=== PATIENT | female | born 1970 | race Caucasian/White ===

== ENCOUNTER → 2021-10-16 | Outpatient (CLI) | payer BC ==
--- NOTE | 2021-10-17 14:08 | MM ---
Reason for exam: screening (asymptomatic). Last mammogram was performed 1 year and 11 months ago. History: Patient is postmenopausal. Physical Findings: A clinical breast exam by your physician is recommended on an annual basis and results should be correlated with mammographic findings. MG 3D Screening Mammo W/Cad Bilateral CC and MLO view(s) were taken. Prior study comparison: November 28, 2019, mammogram, performed at [facility]. There are scattered fibroglandular densities. There is chronic nodularity in the left breast. There is no discrete abnormality. ASSESSMENT: Benign, BI-RAD 2 RECOMMENDATION: Routine screening mammogram of both breasts in 1 year.
== END | disposition home or self-care (01) ==
LOC: RADMAMWWP 15:37
PROVIDERS: ATTEND Internal Medicine
DX: Z12.31 Encounter for screening mammogram for malignant neoplasm of breast (principal); Z78.0 Asymptomatic menopausal state
CPT/HCPCS: 77063; 77067

== ENCOUNTER → 2024-05-12 | Outpatient (CLI) | payer BC ==
--- NOTE | 2024-05-12 10:51 | US ---
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 GLAND SIZE: Right Lobe: 4.3 x 1.56 cm Overall Parenchyma: heterogeneous Left Lobe: 4.3 x 1.5 1. cm Overall Parenchyma: heterogeneous Isthmus Thickness: 0.5 cm NODULES- multiple bilateral subcentimeter nodules seen, largest measured RIGHT: # of nodules measured on right: 2 1. 0.5 X 0.3 x 0.3 cm, lower lateral, solid or almost completely solid, hypoechoic nodule, which is wider than tall, with smooth margins, without echogenic foci. TR 4 Prior size: No previous 2. 0.5 X 0.5 x 0.3 cm, mid medial, solid or almost completely solid, hypoechoic nodule, which is wi dave than tall, with smooth margins, without echogenic foci. TR 4 Prior size: No previous LEFT: # of nodules measured on left: 2 1. 0.9 X 0.7 x 0.5 cm, upper mid, solid or almost completely solid, hypoechoic nodule, which is wid er than tall, with smooth margins, without echogenic foci. TR 4 Prior size: No previous 2. 0.6 X 0.4 x 0.3 cm, lower lateral, solid or almost completely solid, hypoechoic nodule, which i s wider than tall, with smooth margins, without echogenic foci. TR 4 Prior size: No previous ISTHMUS: # of nodules measured in the isthmus: 0 Bilateral neck scanned, no evidence of lymphadenopathy. IMPRESSION: 1. Multiple subcentimeter TR 4 nodules which DO NOT meet the criteria for FNA. Recommend continued leger rveillance. 2. Heterogeneous thyroid tissue correlate for thyroiditis. 2017 ACR TI-RADS LEVEL: TR-RADS 4 - Moderately Suspicious: Follow if > 1 cm, FNA if > 1.5 cm *Highest TI-RADS level nodule reported
--- NOTE | 2024-06-07 12:15 | MM ---
Reason for Exam: Screening (asymptomatic). Last mammogram was performed 2 year(s) and 7 month(s) ago. Patient History: Menarche at age 15. First Full-Term at age 19. Left ovary removed at age 29. Right ovary removed at age 29. Hysterectomy at age 29. Postmenopausal. Risk Values: Kelin 5 year model risk: 1.0%. NCI Lifetime model risk: 6.7%. Prior Study Comparison: 11/28/2019 Screening Mammogram, [facility]. 10/16/2021 Bilateral Screening Mammogram, [facility]. Tissue Density: There are scattered areas of fibroglandular density. Findings: Analyzed By CAD. Benign intramammary lymph node redemonstrated posterior upper-outer quadrant left breast. No significant change from prior exams. Overall Assessment: Benign, BI-RAD 2 Management: Screening Mammogram of both breasts in 1 year. 1. Screening Mammogram Bilateral in 1 Year . 2. Patient should continue monthly self-breast exams. A clinical breast exam by your physician is recommended on an annual basis. 3. This exam should not preclude additional follow-up of suspicious palpable abnormalities. NOTE ON KELIN SCORES AND LIFETIME RISK: 1. A Kelin score greater than 3% is considered moderate risk. If this is the case, consider specialist referral to assess eligibility for a risk reducing agent. 2. If overall lifetime risk for the development of breast cancer is 20% or higher, the patient may qualify for future screening with alternating mammogram and breast MRI. Electronically signed and approved by: Meggan Bear M.D. Radiologist
== END | disposition home or self-care (01) ==
LOC: RADUSWWP 08:24
PROVIDERS: ATTEND Internal Medicine
DX: Z12.31 Encounter for screening mammogram for malignant neoplasm of breast (principal); E04.2 Nontoxic multinodular goiter; Z78.0 Asymptomatic menopausal state; Z90.721 Acquired absence of ovaries, unilateral
CPT/HCPCS: 76536; 77063; 77067

== ENCOUNTER → 2024-12-21 | Outpatient (CLI) | payer BC ==
--- NOTE | 2024-12-21 08:40 | XR ---
EXAMINATION TYPE: XR chest 2V DATE OF EXAM: 12/21/2024 8:26 AM COMPARISON: None CLINICAL INDICATION: Female, 54 years old with history of Z01.818 PRE OP; [facility] TECHNIQUE: XR chest 2V Frontal and lateral views of the chest. FINDINGS: Lungs/Pleura: There is no evidence of pleural effusion, focal consolidation, or pneumothorax. Pulmonary vascularity: Unremarkable. Heart/mediastinum: Cardiomediastinal silhouette is unremarkable. Musculoskeletal: No acute osseous pathology. There is fixation hardware in the lower cervical spine. Other findings: None IMPRESSION: No acute cardiopulmonary disease/process. [facility], , 12/21/2024 8:38 AM
[2024-12-21 08:52] LABS: Appearance,Urine Clear (Clear); Bilirubin,Urine Negative (Negative); Blood,Urine Negative (Negative); Color,Urine Yellow; Glucose,Urine (UA) Negative (Negative); INR 0.9 (<1.2); Ketones,Urine Negative (Negative); Leukocyte Esterase,Urine Moderate (Negative); Mucus,Urine Moderate /hpf; Nitrite,Urine Negative (Negative); Partial Thromboplastin Time 22.3 sec (22.0-30.0); Protein,Urine Trace (Negative); Prothrombin Time 10.4 sec (10.0-12.5); RBC,Urine 1 /hpf (0-5); Specific Gravity,Urine 1.024 (1.001-1.035); Squamous Epithelial Cell,Urine 1 /hpf (0-4); Urobilinogen,Urine <2.0 mg/dL (<2.0); WBC,Urine 9 /hpf (0-5)
[2024-12-21 10:13] LABS: Basophils # (A) 0.07 X 10*3/uL (0.00-0.10); Basophils % (A) 1.2 %; Eosinophils # (A) 0.18 X 10*3/uL (0.04-0.35); Eosinophils % (A) 3.2 %; HCT 41.5 % (37.2-46.3); HGB 13.5 g/dL (12.0-15.0); Lymphocytes % (A) 37.4 %; MCH 30.7 pg (27.0-32.0); MCHC 32.5 g/dL (32.0-37.0); MCV 94.3 FL (80.0-97.0); Mean Platelet Volume 10.2 FL (9.5-12.2); Monocytes # (A) 0.38 X 10*3/uL (0.20-1.00); Monocytes % (A) 6.8 %; NRBC Per 100 WBC 0 X 10*3/uL (0.00-0.01); Neutrophils # (A) 2.85 X 10*3/uL (1.80-7.70); Neutrophils % (A) 50.7 %; Platelet Count 251 X 10*3/uL (140-440); RDW 12.6 % (11.5-14.5); WBC 5.62 X 10*3/uL (4.50-10.00)
[2024-12-21 10:29] LABS: Blood Urea Nitrogen 10.8 mg/dL (9.0-27.0); Calcium 9.1 mg/dL (8.7-10.3); Carbon Dioxide 23.1 mmol/L (21.6-31.8); Chloride 107 mmol/L (96-109); Glucose 75 mg/dL (70-110); Potassium 4.4 mmol/L (3.5-5.5); Sodium 141 mmol/L (135-145)
== END | disposition home or self-care (01) ==
LOC: LABWHC1 07:44
PROVIDERS: ATTEND Orthopaedic Surgery Orthopaedic Surgery of the Spine
DX: Z01.818 Encounter for other preprocedural examination (principal)
CPT/HCPCS: 36415; 71046; 80048; 81001; 85025; 85610; 85730; 93005